=== PATIENT | female | born 1965 | race Caucasian/White ===

== ENCOUNTER 2019-09-17 18:57 | Emergency (ER) | payer MEDICAID, OTHER ==
[~2019-09-17] VITALS: Ht 167.7 cm; Wt 81.7 kg
[2019-09-17] MEDS ORDERED: HALOPERIDOL 5 MG/ML (HALDOL) AMP ONE (19:01)
[2019-09-17] MEDS ORDERED: HALOPERIDOL 5 MG/ML (HALDOL) AMP IM ONE (19:15)
--- NOTE | 2019-09-17 19:45 | ED General ---
General Chief Complaint: Neurological Problems Stated Complaint: SEIZURE Nursing Triage Note: PT TO ROOM FS01 VIA EMS WITH C/O SEIZURE. Nursing Sepsis Screen: No Definite Risk History of Present Illness Date Seen by Provider: Sep 17, 2019 Time Seen by Provider: 18:45 Initial Comments The patient is a 54-year-old female with a history of daily alcohol abuse who is evidently well known to [facility]. It is reported that she does have a history of a seizure disorder of some kind. She presents to the emergency department for evaluation of reported shaking at home prior to arrival. When EMS arrived the patient was alert and responsive but extremely intoxicated with alcohol and agitated and combative. The EMS medic reported to me that the patient's "shaking" was actually her rolling around on the floor while intoxicated. Patient was given 15 mg of Versed in route per EMS for excited delirium. Upon arrival to the emergency department she is calm and answers quest ions appropriately and is in no distress. She denies pain anywhere. There are no signs of trauma aside from some mild bruising to her right shoulder which she states is not new. She is able to range the shoulder without difficulty and without pain. Vital signs were appropriate in route per EMS and blood glucose was 180 per report from EMS. The patient smells of alcohol and admits to drinking vodka today. She denies use of any other substances. She has no other complaints today. Allergies and Home Medications Allergies Coded Allergies: No Known Drug Allergies (Unverified , 09/17/19) Patient Home Medication List Home Medication List Reviewed: Yes Review of Systems Review of Systems Constitutional: see HPI All Other Systems Reviewed Negative Unless Noted: Yes (Negative excepted noted.) Past Itodrqw-Naerkd-Fhtavh Hx Past Med/Social Hx: Reviewed Nursing Past Med/Soc Hx Patient Social History Alcohol Use: Regular Use Recreational Drug Use: No Smoking Status: Current Everyday Smoker 2nd Hand Smoke Exposure: Yes Recent Foreign Travel: No Contact w/Someone Who Travel: No Recent Infectious Disease Expo: No Recent Hopitalizations: No Physical Abuse: No Sexual Abuse: No Mistreated: No Fear: No Seasonal Allergies Seasonal Allergies: No Past Medical History Surgeries: No Respiratory: No Cardiac: No Neurological: No Genitourinary: No Gastrointestinal: No Musculoskeletal: No Endocrine: No HEENT: No Cancer: No Psychosocial: No Integumentary: No Blood Disorders: No Family Medical History Reviewed Nursing Family Hx Physical Exam Vital Signs Vital Signs - First Documented 09/17/19 19:23 Temp 36.4 Pulse 94 Resp 18 B/P (MAP) 105/79 (88) Pulse Ox 98 O2 Delivery Nasal Cannula O2 Flow Rate 2.00 Capillary Refill : Less Than 3 Seconds Height, Weight, BMI Height: '" Weight: lbs. oz. kg; 29.00 BMI Method: General Appearance: No Apparent Distress Comments Is is an older female appearing nontoxic and in no acute distress. She smells of alcohol. Head is normocephalic and atraumatic. Neck is supple and nontender. Oropharynx is moist. Lungs are clear to auscultation at all stations. There is a normal S1 and S2 without rubs or gallops and capillary refill is appropriate, less than 2 seconds globally. Abdomen is soft, nontender and nondistended. Skin is warm and dry without cyanosis, clubbing or edema. Psychiatrically, the patient demonstrates appropriate mood and affect and is alert. Neurologically, patient was alert extremities equally and no lateralizing deficits are grossly noted. She does appear mildly intoxicated. Progress/Results/Core Measures Suspected Sepsis Recent Fever Within 48 Hours: No Infection Criteria Present: None New/Unexplained Altered Menta: No Sepsis Screen: No Definite Risk SIRS Temperature: Pulse: 94 Respiratory Rate: 18 Blood Pressure 105 /79 Mean: 88 Results/Orders My Orders Orders - HAMILTON HERRERA MD Haloperidol Injection (Haldol Injectio (09/17/19 19:01) Alcohol (09/17/19 19:08) Haloperidol Injection (Haldol Injectio (09/17/19 19:15) Vital Signs/I&O 09/17/19 19:23 Temp 36.4 Pulse 94 Resp 18 B/P (MAP) 105/79 (88) Pulse Ox 98 O2 Delivery Nasal Cannula O2 Flow Rate 2.00 Capillary Refill : Less Than 3 Seconds Blood Pressure Mean: 88 POS Progress Note : Time: 20:00 Progress Note 54-year-old alcoholic seen for alcohol intoxication. Reported "shaking" at home however patient was never postictal, just combative prior to medications being given in route to relieve agitation. We'll allow her to rest and sober and then reevaluate. Patient did receive Haldol intramuscularly on arrival however she is not at all sedated following a period of significant observation after receiving this medicine. In fact, she is calm, cooperative, alert and oriented 4. She verbalizes a desire to go home. Patient is calm and cooperative and alert and oriented 4 and demonstrates good judgment and ambulates with a narrow, steady gait here in the emergency department. She is clinically sober for discharge at this time. The proceed with discharge home. Patient is counseled to avoid drinking alcohol to excess in the future. She is to follow-up with her primary care physician in the next 1-2 days and return right away if symptoms recur or worsen or if other new symptoms of concern develop. All questions are answered. Departure Impression Primary Impression: Alcohol dependence with acute alcoholic intoxication without complication Disposition: HOME, SELF-CARE Condition: Improved Departure-Patient Inst. Referrals: SARANYA AVILA MD UNKNOWN (PCP) Primary Care Physician Patient Instructions: Alcohol Abuse and Alcoholism (DC), Effects of Alcohol on Your Health Add. Discharge Instructions: You were seen for alcohol intoxication. Please do not drink alcohol to excess to avoid significant [facility] health. Follow-up with her primary care physician in the next 1-2 days. If you do not have a primary care physician, we are referring you to Dr. Avila of [facility]. Return to the emergency department right away with worsen symptoms or other new symptoms of concern. HAMITLON HERRERA MD Sep 17, 2019 19:45 POS
[2019-09-17 20:04] VITALS: BP 159/89
== END 2019-09-17 20:04 | disposition home or self-care (01) ==
LOC: ER FS 18:59
DX: F10.220 Alcohol dependence with intoxication, uncomplicated (principal); G40.909 Epilepsy, unspecified, not intractable, without status epilepticus; F17.200 Nicotine dependence, unspecified, uncomplicated